=== PATIENT | female | born 1980 | race Two or more races ===

== ENCOUNTER → 2024-06-17 | Outpatient (CLI) | payer OTHER, SELFPAY ==
--- NOTE | 2024-06-17 09:45 | XR_ITS ---
Examination: Diagnostic digital mammography, unilateral, left Computer aided detection 3-D breast Tomosynthesis, unilateral Date and time of exam: June 17, 2024 0943 hours INDICATIONS: Mammogram September 09, 2023 10 mm circumscribed nodule upper left breast MLO view Technique: Nonmagnified MLO, CC views of the left breast have been obtained, reconstructed from 3-D Tomosynthesis images. R2 computer aided detection program utilized for evaluation of suspicious masses and/or abnormal calcifications. 3-D Tomosynthesis images obtained. Findings: Scattered areas of fibroglandular density. Benign calcifications No current suspicious nodule Impression: BI-RADS category 2: Benign findings Return to yearly follow-up mammography Recommend repeat left breast sonography at this time
== END | disposition home or self-care (01) ==
LOC: CDIM 09:33
PROVIDERS: Referring Provider Specialist; Visit Provider Specialist
DX: R92.322 Mammographic fibroglandular density, left breast (principal); R92.1 Mammographic calcification found on diagnostic imaging of breast
CPT/HCPCS: 77061; 77065; G0279

== ENCOUNTER 2024-06-28 11:49 | Emergency (ER) | payer OTHER, SELFPAY ==
[2024-06-28 11:50] VITALS: BMI 40.6
[2024-06-28 12:06] VITALS: BP 171/93; PULSE 101; RESP 16; TEMP 36.9; O2SAT 97
--- NOTE | 2024-06-28 12:29 | XR_ITS ---
Examination: CT brain head without contrast. 2-D sagittal coronal reconstructions Date and time of exam:June 28, 2024 1325 hrs. Indications: Headache dizziness beginning 4 days ago CTDI: vol (mGy):51.6 DLP: (mGycm):1045 Technique: Multiple CT axial sections of the brain have been obtained, 5 mm slice thickness. Contrast has not been administered. 2-D sagittal, coronal reconstructions have been obtained Low dose protocols were performed. One or more of the following dose reduction techniques were used; automated exposure control, adjustment of the mA and/or KV according to patient size, use of iterative reconstruction technique. Findings: No significant ventricular enlargement. Probable small calcification in the right basal ganglia image 24 Clinical correlation advised No mass effect or midline shift Basal cisterns are not remarkable. Fourth ventricle is midline. Cranial vault intact. Impression: Probable small calcification in the right basal ganglia, axial image 24 Suggest 24 hour follow-up CT brain scan as clinically warranted
--- NOTE | 2024-06-28 12:30 | PD.EDRME ---
Rapid Medical Screening Exam RME Arrival date/time: 06/28/24 11:49 43-year-old female presents emerged part today complains of headache patient for symptoms ongoing times Chief Complaint: Headache Time Seen by Provider: 06/28/24 11:53 Vital signs: Vital Signs Temperature 98.4 F 06/28/24 12:06 Pulse Rate 101 H 06/28/24 12:06 Respiratory Rate 16 06/28/24 12:06 Blood Pressure 171/93 H 06/28/24 12:06 Pulse Oximetry (%) 97 06/28/24 12:06 Oxygen Delivery Method Room Air 06/28/24 12:06
[2024-06-28 13:11] LABS: Basophils % (Auto) 0 % (0-2.5); Eosinophils % (Auto) 0 % (0-10); Hematocrit 27.7 % (36.0-46.0); Immature Granulocytes % (Auto) 0 % (0-0); Immature Granulocytes Auto 0.04 Thou/mm3 (0.00-0.00); Lymphocytes # (Auto) 1.6 Thou/mm3 (1.0-4.8); Lymphocytes % (Auto) 16 % (10-50); Mean Corpuscular HGB Conc 28.2 g/dl (31.0-37.0); Mean Corpuscular Hemoglobin 17.6 pg (25.0-35.0); Mean Corpuscular Volume 62 fL (80-100); Monocytes # (Auto) 0.4 Thou/mm3 (0.0-0.8); Monocytes % (Auto) 4 % (0-12); Neutrophils # (Auto) 8.4 Thou/mm3 (1.8-7.7); Neutrophils % (Auto) 80 % (37-80); Nucleated Red Blood Cell % 0 /100 WBC (0); Platelet Count 470 Thou/mm3 (140-440); RDW Standard Deviation 39.5 fL (36.4-46.3); Red Blood Count 4.44 Miln/mm3 (4.00-5.20); White Blood Count 10.5 Thou/mm3 (3.6-11.0)
[2024-06-28 13:12] LABS: Hemoglobin 7.8 g/dL (12.0-16.0)
[2024-06-28 13:32] LABS: HCG,Qualitative Serum Negative
[2024-06-28 13:43] LABS: Alanine Aminotransferase 12 U/L (10-49); Albumin, Serum 4.4 gm/dL (3.5-5.0); Albumin/Globulin Ratio 1.5 (1.2-2.2); Alkaline Phosphatase 53 U/L (46-116); Anion Gap 9 (7-16); Aspartate Amino Transferase < 10 U/L (0-34); BUN/Creatinine Ratio 16 Ratio (12-20); Bilirubin,Total 0.4 mg/dL (0.3-1.2); Blood Urea Nitrogen 13 mg/dL (9-23); Carbon Dioxide 25.2 mMol/L (20.0-31.0); Chloride 106 mMol/L (98-107); Creatinine (Component) 0.8 mg/dL (0.6-1.3); Estimated Creatinine Clearance 94.1 mL/min (>60); Glucose 103 mg/dL (74-106); Osmolality,Calculated 279 (275-295); Potassium 3.7 mMol/L (3.4-5.1); Sodium 140 mMol/L (136-145); Total Protein 7.4 gm/dL (5.7-8.2); eGFR > 60 See Note
[2024-06-28 15:20] LABS: Path Review Blood Smear Sent to Pathologist
[2024-06-28 18:49] VITALS: BP 150/89; PULSE 89; RESP 16; TEMP 37.1; O2SAT 100
--- NOTE | 2024-06-28 19:06 | PD.EDHA ---
ED Headache RME/HPI General Chief Complaint: Headache Stated Complaint: HEADACHE SINCE THRUSDAY Time Seen by Provider: 06/28/24 11:53 Source: patient Arrival date/time: 06/28/24 11:49 Mode of arrival: ambulatory Limitations: no limitations RME / HPI RME / HPI Narrative: 06/28/24 11:49 43-year-old female presents emerged part today complains of headache patient for symptoms ongoing times . Dr. Grant?s Main ED Evaluation: The patient is a 43-year-old female presenting to the emergency department with a chief complaint of persistent pulsating headache and associated dizziness. The headache began on and has been present for the past four days. She describes the pain as diffuse, dull, and moderately severe, without aura, photophobia, or visual disturbances. The headache is minimally responsive to [id number] analgesics. Earlier today, she took Excedrin Migraine, which provided partial but temporary relief. Yesterday, she developed dizziness. She denies recent head trauma. The dizziness has persisted, leading her to seek emergency care. Additionally, the patient reports excessive sweating of the hands and feet, which has been occurring consistently for the past 1 to 2 weeks. The patient notes that her headache is exacerbated by physical activity and movement. Additionally, she reports that feelings of anxiety also intensify the headache. Her medication history includes a recent course of Macrobid for a urinary tract infection and Diflucan. She has not sought medical evaluation for her current symptoms but reports having a primary care physician. The patient has a history of menorrhagia and iron-deficiency anemia. She has been prescribed iron supplementation in the past but reports poor compliance due to adverse effects, including nausea, gastrointestinal upset, and an aversion to its metallic taste. She denies fever, nausea, vomiting, recent illness, or other systemic symptoms. The patient reports experiencing a similar episode in 2019, during the COVID-19 pandemic. At that time, she underwent a CT scan of the head, which was reportedly negative for any acute findings. Following this evaluation, she consulted with her primary care physician, who attributed her symptoms to stress and prescribed Valium. Related Data Home Medications ?Medication ?Instructions ?Recorded ?Confirmed lisinopril 20 mg tablet 20 mg PO QDAY 08/02/23 08/02/23 Previous Rx's ?Medication ?Instructions ?Recorded dicyclomine 20 mg tablet 20 mg PO .q6hprn PRN abdominal 08/03/23 pain #30 tabs ibuprofen 600 mg tablet 600 mg PO Q6H PRN pain #30 tabs 08/03/23 ondansetron 4 mg disintegrating 4 mg PO Q6H PRN nausea and 08/03/23 tablet vomiting #10 tabs ibuprofen 800 mg tablet 800 mg PO TID PRN pain #30 tabs 11/22/23 Allergies Allergy/AdvReac Type Severity Reaction Status Date / Time No Known Allergies Allergy Verified 06/28/24 11:50 Review of Systems Review of Systems Systems Reviewed: All systems reviewed, normal except as documented Past Medical History Past Medical History NEUROLOGIC: Negative Neurological Disorders or Seizures CARDIAC: Positive Heart Murmur, Hypercholesterolemia and Hypertension; Negative Cardiac Disorders or Congestive Heart Failure RESPIRATORY: Negative Chronic Obstructive Pulmonary Disease (COPD) or Asthma GASTROINTESTINAL: Positive Gastrointestinal Disorders, Gall Bladder Disease, Ulcer, Hiatal Hernia and Obesity; Negative Hepatitis GENITOURINARY: Negative Genitourinary Disorders or Renal Disease REPRODUCTIVE: Positive Previous Pregnancies MUSCULOSKELETAL: Negative Musculoskeletal Disorders ENDOCRINE: Negative Endocrine Disorders, Diabetes Mellitus Type 1 or Diabetes Mellitus Type 2 HEMATOLOGIC: Positive Blood Disorders and Anemia; Negative Sickle Cell Disease OTHER HISTORY: Positive Chicken Pox; Negative Autoimmune Disease, Shingles, Blood Transfusions, Blood Transfusion Reaction, Anesthesia Reactions or Cancer Family History FAMILY HISTORY: Negative Family Psychiatric Problems, Family Respiratory Disorders, Family Cardiac Disorders, Family Gastrointestinal Problems, Family Cancer, Family Surgery or Family Anesthesia Reaction Surgical History SURGICAL: Positive Tubal Ligation and Section (x4) Social History SMOKING STATUS: Never smoker SUBSTANCE USE: does not use ED Exam General Limitations: Present no limitations General appearance: Present alert and in no apparent distress Head Head exam: Present atraumatic Eye Eye exam: Present normal appearance, PERRL and EOMI ENT ENT exam: Present normal exam, normal oropharynx and mucous membranes moist Neck Neck exam: Present normal inspection, full ROM and trachea midline Chest Chest inspection: Present normal inspection and symmetric chest wall rise Respiratory Respiratory exam: Present normal lung sounds bilaterally Cardiovascular Cardiovascular exam: Present regular rate, normal rhythm and normal heart sounds Abdominal Exam Abdominal exam: Present soft and normal bowel sounds Extremities Exam Extremities exam: Present normal inspection and full ROM Back Exam Back exam: Present normal inspection and full ROM Neurological Exam Neurological exam: Present alert, oriented X3 and CN II-XII intact Psychiatric Psychiatric exam: Present normal affect and normal mood Skin Skin exam: Present warm, dry, intact and normal color Course Quality Measures none Orders Category Date Time Status CT Screening NOW Care 06/28/24 19:13 Completed IV [Insert IV] STAT Care 06/28/24 19:[address] angio carotid w head w Stat Exams 06/28/24 19:[address] head/brain wo con Stat Exams 06/28/24 12:29 Completed CBC Stat Lab 06/28/24 12:56 Completed CMP [Comprehensive Metabolic Panel] Stat Lab 06/28/24 12:56 Completed HCG,Qualitative Serum Stat Lab 06/28/24 12:56 Completed Path Review Blood Smear Stat Lab 06/28/24 12:56 Completed Sodium Chloride 0.9% 1000 ml [Ns] 1,000 ml Med 06/28/24 19:14 Discontinued IV 999 mls/hr Vital Signs Vital signs: Vital Signs Temperature 98.4 F 06/28/24 12:06 Pulse Rate 101 H 06/28/24 12:06 Respiratory Rate 16 06/28/24 12:06 Blood Pressure 171/93 H 06/28/24 12:06 Pulse Oximetry (%) 97 06/28/24 12:06 Oxygen Delivery Method Room Air 06/28/24 12:06 Headache MDM Narrative MDM Narrative:: Scribe Attestation: IТатьяна, am scribing for and in the presence of Dr. Grant. Provider Notation: Although this document has been carefully reviewed, there may still be some phonetic and other typographical errors. These errors are purely grammatical due to imperfections in the software program and should not be construed in any way to compromise the substance of the patient's medical care during this visit. Patient data External records reviewed:: [facility] previous records Clinical information provided by:: patient Social determinants that could affect healthcare access:: none Patient has the following chronic illnesses:: see PMH How is presenting disease/condition affected by chronic disease/condition?: uneffected by Evaluation data The following diagnostics were reviewed and interpreted by me:: lab results and radiology exam(s) Lab and/or radiology exams considered but not ordered:: None Interpretation Summary: I personally reviewed the radiology data and agree with the radiologist's interpretation. Examination: CT brain head without contrast. Date and time of exam:June 28, 2024 1325 hrs. Indications: Headache dizziness beginning 4 days ago Findings: No significant ventricular enlargement. Probable small calcification in the right basal ganglia image 24 Clinical correlation advised No mass effect or midline shift Basal cisterns are not remarkable. Fourth ventricle is midline. Cranial vault intact. Impression: Probable small calcification in the right basal ganglia, axial image 24 Suggest 24 hour follow-up CT brain scan as clinically warranted Dictated By: Rober Benjamin MD Examination: CTA carotids with intravenous contrast, CTA brain, head with intravenous contrast. Exam date and time: June 28, 2024 2003 hours INDICATIONS: Stroke alert, onset headaches beginning 4 days ago Findings: No significant common carotid carotid bifurcation or internal carotid artery stenoses Contrast bolus timing is reduced intracranial, no gross cerebral large vessel artery occlusions or thrombus IMPRESSION: Limited study No significant neck arterial stenoses No large vessel arterial occlusions demonstrated Dictated By: Rober Benjamin MD Medications / Prescriptions Medications or Prescriptions considered but not ordered:: None Medication administrations:: Medication Administration History Discontinued Medications Sodium Chloride (Ns) 1,000 mls @ 999 mls/hr IV .Q1H1M ONE Stop: 06/28/24 20:14 Last Infusion: 06/28/24 20:46 Dose: Infused Documented By: Admin: 06/28/24 19:45 Dose: 999 mls/hr Documented By: EF As above, if any Consultations Consultation(s) initiated? (list below): No Diagnosis Differential diagnosis headache: other (Artifact, Bleed, Other intracranial disease, Aneursym, Atypical trauma, Undiagnosed migraine) Most likely diagnosis given after review of the tests above:: See clinical impression Admission Indicated Admission indicated?: not indicated Admission Request Was there a request for admission?: No Disposition Plan Disposition Plan: Discharge Discharge Attestation Discharge Attestation: The patient and all family members were given an opportunity to ask questions and understood the discharge instructions. Discharge instructions specifically effects, indications for sooner follow up or return to the emergency department, and the expected course of current diagnosis. Patient condition: Stable Discharge Plan Plan Patient Disposition: HOME (Self Care) Patient condition on transfer: Stable Prescriptions/Referrals Prescriptions/Med Rec: No Action lisinopril 20 mg Tablet 20 mg PO QDAY ibuprofen 600 mg tablet 600 mg PO Q6H PRN (Reason: pain) Qty: 30 0RF dicyclomine 20 mg tablet 20 mg PO .q6hprn PRN (Reason: abdominal pain) Qty: 30 0RF ondansetron 4 mg tablet,disintegrating 4 mg PO Q6H PRN (Reason: nausea and vomiting) Qty: 10 0RF ibuprofen 800 mg tablet 800 mg PO TID PRN (Reason: pain) Qty: 30 0RF Referrals: No Primary/Family,Physician [Primary Care Provider] - In 1 week Problem List Clinical Impression: Headache Patient/Caregiver Discharge Instructions Education Materials: Self-Care for Headaches Additional Instructions: Please return tomorrow at around 11 AM, to get a repeat CAT scan to see if there is a change in the calcification on your initial CT. Return sooner if you are having any worsening headache, any weakness or numbness, change in vision, or any other concerns. You can take Tylenol 650 mg 3 times a day as needed for pain for the next 48 hours. Stay hydrated with Pedialyte and Gatorade. You will need to follow-up with your primary care in the next 1 week for general follow-up. Print Language: Turkmen Stand Alone Forms: Skyla Award Info., Patient Portal Info Letter
--- NOTE | 2024-06-28 19:13 | XR_ITS ---
Examination: CTA carotids with intravenous contrast CTA brain, head with intravenous contrast. 2-D sagittal, coronal reconstructions. 3-D reconstructions. Exam date and time: June 28, 20242002 hours INDICATIONS: Stroke alert, onset headaches beginning 4 days ago CTDI: vol (mGy) 46.78 DLP: (mGycm) 500 Technique: Multiple CTA axial brain, head carotid images post intravenous contrast injection 75 cc, [id number]. 2-D sagittal, coronal reconstructions. 3-D reconstructions, 3-D post processing including vascular maximum intensity projection images. Low dose protocols were performed. One or more of the following dose reduction techniques were used; automated exposure control, adjustment of the mA and/or KV according to patient size, use of iterative reconstruction technique. Findings: No significant common carotid carotid bifurcation or internal carotid artery stenoses Contrast bolus timing is reduced intracranial, no gross cerebral large vessel artery occlusions or thrombus IMPRESSION: Limited study No significant neck arterial stenoses No large vessel arterial occlusions demonstrated
[2024-06-28] MEDS: SODIUM CHLORIDE 0.9% 1000 ML 1,000 ML 999 ML IV (19:45)
[2024-06-28 23:25] VITALS: BP 142/82; PULSE 88; RESP 16; TEMP 36.8; O2SAT 100
== END 2024-06-28 23:31 | disposition home or self-care (01) ==
PROVIDERS: Nurse Practitioner Primary Care; Emergency Provider Emergency Medicine
DX: R51.9 Headache, unspecified (principal); R42 Dizziness and giddiness
CPT/HCPCS: 36415; 70450; 70496; 70498; 80053; 84703; 85025; 96360; 99285; A4649; J7030; Q9967

== ENCOUNTER 2024-06-29 11:04 | Emergency (ER) | payer OTHER, SELFPAY ==
[2024-06-29 11:06] VITALS: BP 146/86; PULSE 99; RESP 18; TEMP 37.2; O2SAT 100; BMI 40.6
[2024-06-29 11:24] VITALS: BMI 38.5
--- NOTE | 2024-06-29 11:27 | XR_ITS ---
Examination: CT brain head without contrast. 2-D sagittal coronal reconstructions Date and time of exam:June 29, 2024 1045 hours Comparison June 28, 2024 INDICATIONS: Onset headaches dizziness this week CTDI: vol (mGy):51.1 DLP: (mGycm):887 Technique: Multiple CT axial sections of the brain have been obtained, 5 mm slice thickness. Contrast has not been administered. 2-D sagittal, coronal reconstructions have been obtained Low dose protocols were performed. One or more of the following dose reduction techniques were used; automated exposure control, adjustment of the mA and/or KV according to patient size, use of iterative reconstruction technique. Findings: No significant ventricular enlargement. Stable small area of calcification in the right basal ganglia Intra-axial or extra-axial hemorrhage density is not seen. No mass effect or midline shift Basal cisterns are not remarkable. Fourth ventricle is midline. Cranial vault intact. Impression: No interval acute hemorrhage, mass effect or midline shift
--- NOTE | 2024-06-29 13:01 | EDNOTE_ITS ---
ED Headache RME/HPI General Chief Complaint: Headache Stated Complaint: HEADACHE AND SENT TO GET REPEATE HEAD CT. Time Seen by Provider: 06/29/24 11:27 Arrival date/time: 06/29/24 11:04 43-year-old female presents emergency department today patient had CT scan yesterday was instructed to return today for repeat CT scan today Limitations: no limitations Related Data Home Medications ?Medication ?Instructions ?Recorded ?Confirmed lisinopril 20 mg tablet 20 mg PO QDAY 08/02/2308/01 Previous Rx's ?Medication ?Instructions ?Recorded dicyclomine 20 mg tablet 20 mg PO .q6hprn PRN abdomin al 08/03/23 pain #30 tabs ibuprofen 600 mg tablet 600 mg PO Q6H PRN pain #30 t abs 08/03/23 ondansetron 4 mg disintegrating 4 mg PO Q6H PRN nausea and 08/03/23 tablet vomiting #10 tabs ibuprofen 800 mg tablet 800 mg PO TID PRN pain #30 t abs 11/22/23 Allergies Allergy/AdvReac Type Severity Reaction Status Date / Time No Known Allergies Allergy Verified 06/28/24 11:50 Review of Systems Review of Systems Systems Reviewed: All systems reviewed, normal except as documented Constitutional Constitutional: Reports system reviewed and no additional complaints, except as documented, Denies fever(s) and Reports headache(s) Eyes Eyes: Reports system reviewed and no additional complaints, except as documented and Denies blurry vision ENT Ears, Nose, Mouth, and Throat: Reports system reviewed and no additional complaints, except as documented, Reports headache(s), Denies nasal congestion and Denies nasal discharge Cardiovascular Cardiovascular: Reports system reviewed and no additional complaints, except as documented, Denies chest pain and Denies dyspnea Respiratory Respiratory: Reports system reviewed and no additional complaints, except as documented, Denies chest congestion, Denies cough and Denies dyspnea Gastrointestinal Gastrointestinal: Reports system reviewed and no additional complaints, except as documented and Denies abdominal pain Integumentary/Breasts Skin/Breast: Reports system reviewed and no additional complaints, except as documented and Denies rash Neurologic Neurologic: Reports system reviewed and no additional complaints, except as documented, Reports as per HPI and Reports headache(s) Past Medical History Past Medical History NEUROLOGIC: Negative Neurological Disorders or Seizures CARDIAC: Positive Heart Murmur, Hypercholesterolemia and Hypertension; Negative Cardiac Disorders or Congestive Heart Failure RESPIRATORY: Negative Chronic Obstructive Pulmonary Disease (COPD) or Asthma GASTROINTESTINAL: Positive Gastrointestinal Disorders, Gall Bladder Disease, Ulcer, Hiatal Hernia and Obesity; Negative Hepatitis GENITOURINARY: Negative Genitourinary Disorders or Renal Disease REPRODUCTIVE: Positive Previous Pregnancies MUSCULOSKELETAL: Negative Musculoskeletal Disorders ENDOCRINE: Negative Endocrine Disorders, Diabetes Mellitus Type 1 or Diabetes Mellitus Type 2 HEMATOLOGIC: Positive Blood Disorders and Anemia; Negative Sickle Cell Disease OTHER HISTORY: Positive Chicken Pox; Negative Autoimmune Disease, Shingles, Blood Transfusions, Blood Transfusion Reaction, Anesthesia Reactions or Cancer Family History FAMILY HISTORY: Negative Family Psychiatric Problems, Family Respiratory Disorders, Family Cardiac Disorders, Family Gastrointestinal Problems, Family Cancer, Family Surgery or Family Anesthesia Reaction Surgical History SURGICAL: Positive Tubal Ligation and Section Social History SMOKING STATUS: Never smoker SUBSTANCE USE: does not use ED Exam General Limitations: Present no limitations General appearance: Present alert and in no apparent distress Head Head exam: Present atraumatic, normocephalic and normal inspection Eye Eye exam: Present normal appearance, PERRL and EOMI; Absent conjunctival injection ENT ENT exam: Present normal exam, normal oropharynx and mucous membranes moist Neck Neck exam: Present normal inspection, full ROM and trachea midline Chest Chest inspection: Present normal inspection and symmetric chest wall rise; Absent tenderness Respiratory Respiratory exam: Present normal lung sounds bilaterally; Absent respiratory distress or wheezes Cardiovascular Cardiovascular exam: Present regular rate, normal rhythm and normal heart sounds Abdominal Exam Abdominal exam: Present soft and normal bowel sounds; Absent distention, tenderness, guarding or rebound Extremities Exam Extremities exam: Present normal inspection and full ROM Back Exam Back exam: Present normal inspection and full ROM Neurological Exam Neurological exam: Present alert, oriented X3, CN II-XII intact, normal gait and reflexes normal; Absent motor sensory deficit Psychiatric Psychiatric exam: Present normal affect and normal mood Skin Skin exam: Present warm, dry, intact and normal color Course Quality Measures none Orders Category Date Time Status CT head/brain wo con Stat Exams 06/29/24 11:27 Completed Vital Signs Vital signs: Vital Signs Temperature 99.0 F 06/29/24 11:06 Pulse Rate 99 06/29/24 11:06 Respiratory Rate 18 06/29/24 11:06 Blood Pressure 146/86 H 06/29/24 11:06 Pulse Oximetry (%) 100 06/29/24 11:06 Oxygen Delivery Method Room Air 06/29/24 11:06 O2 saturation 100% room air within normal limits Headache MDM Narrative MDM Narrative:: 43-year-old female presents emergency department today patient had CT scan yesterday was instructed to return today for repeat CT scan today On exam patient well-appearing patient's not appear ill or toxic patient had CT scans completed because have a headache Imaging of the head reviewed from yesterday repeat CT scan done today As patient has no abnormal neurological findings patient will be discharged home Patient discharged home in no distress to follow-up with primary care doctor in the next 24 to 48 hours and for any worsening symptoms to return to the ER immediately Patient data External records reviewed:: [facility] previous records Clinical information provided by:: patient Social determinants that could affect healthcare access:: none Patient has the following chronic illnesses:: See history How is presenting disease/condition affected by chronic disease/condition?: uneffected by Evaluation data The following diagnostics were reviewed and interpreted by me:: radiology exam(s) Lab and/or radiology exams considered but not ordered:: Radiology obtain Interpretation Summary: Viewed by me Medications / Prescriptions Medications or Prescriptions considered but not ordered:: Gi Medication administrations:: Given i Consultations Consultation(s) initiated? (list below): No Diagnosis Differential diagnosis headache: migraine and tension headache Most likely diagnosis given after review of the tests above:: Headache Admission Indicated Admission indicated?: not indicated Admission Request Was there a request for admission?: No Disposition Plan Disposition Plan: Discharge Discharge Attestation Discharge Attestation: The patient and all family members were given an opportunity to ask questions and understood the discharge instructions. Discharge instructions specifically effects, indications for sooner follow up or return to the emergency department, and the expected course of current diagnosis. Patient condition: Stable Discharge Plan Plan Patient Disposition: HOME (Self Care) Disposition Comment: Stable Prescriptions/Referrals Prescriptions/Med Rec: No Action lisinopril 20 mg Tablet 20 mg PO QDAY ibuprofen 600 mg tablet 600 mg PO Q6H PRN (Reason: pain) Qty: 30 0RF dicyclomine 20 mg tablet 20 mg PO .q6hprn PRN (Reason: abdominal pain) Qty: 30 0RF ondansetron 4 mg tablet,disintegrating 4 mg PO Q6H PRN (Reason: nausea and vomiting) Qty: 10 0RF ibuprofen 800 mg tablet 800 mg PO TID PRN (Reason: pain) Qty: 30 0RF Referrals: PATRICIA MENSAH [Primary Care Provider] - 06/30/24 Problem List Clinical Impression: Headache Patient/Caregiver Discharge Instructions Education Materials: Self-Care for Headaches Additional Instructions: Please follow up with your primary care doctor in the next 24-48hrs for any worsening symptoms return here immediately Print Language: Faroese Stand Alone Forms: Skyla Award Info., Patient Portal Info Letter PA/NOVELTIES SALES REPRESENTATIVE Supervising Physician PA/NOVELTIES SALES REPRESENTATIVE Supervising Physician: Dr Mcmillan
== END 2024-06-29 13:38 | disposition home or self-care (01) ==
PROVIDERS: Emergency Provider Emergency Medicine; PCP Nurse Practitioner Family
DX: R51.9 Headache, unspecified (principal)
CPT/HCPCS: 70450; 99284

== ENCOUNTER → 2024-07-06 | Outpatient (CLI) | payer OTHER, SELFPAY ==
--- NOTE | 2024-07-06 12:32 | XR_ITS ---
Examination: PA lateral chest 2 views TECHNIQUE: Upright PA lateral chest 2 views Exam date and time: July 06, 2024 1351 hours INDICATIONS: Chest pain shortness of breath beginning 2 weeks ago FINDINGS: Normal heart size. Lungs are clear The osseous structures are intact IMPRESSION: No active disease
== END | disposition home or self-care (01) ==
LOC: COPL 07-08 15:41 → CDIM 07-29 06:28
PROVIDERS: PCP Nurse Practitioner Family; Referring Provider Nurse Practitioner Family; Visit Provider Nurse Practitioner Family
DX: R07.9 Chest pain, unspecified (principal)
CPT/HCPCS: 71046

== ENCOUNTER → 2024-07-10 | Outpatient (CLI) | payer OTHER, SELFPAY ==
[2024-07-10] VITALS (10 sets, daily range): BP systolic 123–137; BP diastolic 72–86; PULSE 71–99; RESP 16–17; TEMP 36.3–37.1; O2SAT 97–100; BMI 39.8
--- NOTE | 2024-07-10 12:30 | SUR.OPER ---
blood transfusion complete. lab ordered for 1 hour.
[2024-07-10] MEDS: FUROSEMIDE INJ 10 MG/ML VIAL 2 ML 20 MG IVP (13:32)
[2024-07-10 13:46] LABS: Basophils % (Auto) 0 % (0-2.5); Eosinophils % (Auto) 0 % (0-10); Hemoglobin 10.2 g/dL (12.0-16.0); Immature Granulocytes % (Auto) 1 % (0-0); Lymphocytes # (Auto) 2.1 Thou/mm3 (1.0-4.8); Lymphocytes % (Auto) 27 % (10-50); Mean Corpuscular Hemoglobin 20.4 pg (25.0-35.0); Mean Corpuscular Volume 68 fL (80-100); Monocytes # (Auto) 0.4 Thou/mm3 (0.0-0.8); Monocytes % (Auto) 5 % (0-12); Neutrophils # (Auto) 5.1 Thou/mm3 (1.8-7.7); Neutrophils % (Auto) 67 % (37-80); Nucleated Red Blood Cell % 0 /100 WBC (0); Platelet Count 347 Thou/mm3 (140-440); RDW Standard Deviation 54.6 fL (36.4-46.3); White Blood Count 7.7 Thou/mm3 (3.6-11.0)
== END | disposition home or self-care (01) ==
LOC: SFLEX 07:01
PROVIDERS: PCP Nurse Practitioner Family; Referring Provider Nurse Practitioner Family; Visit Provider Family Medicine
PROC: (CPT 36430; principal; 2024-07-10 06:00)
DX: D64.9 Anemia, unspecified (principal); R00.0 Tachycardia, unspecified; R53.82 Chronic fatigue, unspecified; R06.02 Shortness of breath
CPT/HCPCS: 36415; 36430; 85025; 86850; 86900; 86901; 86923; J1940; P9016

== ENCOUNTER 2024-07-23 13:16 | Outpatient (RCR) | payer OTHER, SELFPAY | END 2024-07-24 23:59 | disposition home or self-care (01) | LOC: SCTC 13:16 | PROVIDERS: PCP Nurse Practitioner Family; Referring Provider Nurse Practitioner Family; Visit Provider Nurse Practitioner Family | DX: Z76.89 Persons encountering health services in other specified circumstances (principal); Z15.01 Genetic susceptibility to malignant neoplasm of breast; Z15.09 Genetic susceptibility to other malignant neoplasm; Z80.3 Family history of malignant neoplasm of breast; Z80.0 Family history of malignant neoplasm of digestive organs; N92.0 Excessive and frequent menstruation with regular cycle | CPT/HCPCS: 99212; G0463 ==

== ENCOUNTER → 2024-07-23 | Outpatient (CLI) | payer OTHER, SELFPAY ==
[2024-07-23 12:35] LABS: Basophils % (Auto) 0 % (0-2.5); Eosinophils % (Auto) 0 % (0-10); Immature Granulocytes % (Auto) 0 % (0-0); Immature Granulocytes Auto 0.02 Thou/mm3 (0.00-0.00); Immature Reticulocyte Fraction 18.3 % (3.0-15.9); Lymphocytes # (Auto) 2.4 Thou/mm3 (1.0-4.8); Lymphocytes % (Auto) 33 % (10-50); Mean Corpuscular HGB Conc 29.4 g/dl (31.0-37.0); Mean Corpuscular Volume 71 fL (80-100); Monocytes # (Auto) 0.5 Thou/mm3 (0.0-0.8); Monocytes % (Auto) 6 % (0-12); Neutrophils # (Auto) 4.5 Thou/mm3 (1.8-7.7); Neutrophils % (Auto) 61 % (37-80); Nucleated Red Blood Cell % 0 /100 WBC (0); Platelet Count 318 Thou/mm3 (140-440); RDW Standard Deviation 61.6 fL (36.4-46.3); Red Blood Count 4.76 Miln/mm3 (4.00-5.20); Reticulocyte % (Auto) 0.9 % (0.5-1.5); Reticulocyte Absolute Auto 41.4 Biln/L (25.0-75.0); Reticulocyte Hgb Content 26.5 pg (28.0-35.0); White Blood Count 7.4 Thou/mm3 (3.6-11.0)
[2024-07-23 12:48] LABS: Alanine Aminotransferase 14 U/L (10-49); Albumin, Serum 4.2 gm/dL (3.5-5.0); Alkaline Phosphatase 55 U/L (46-116); Anion Gap 8 (7-16); Aspartate Amino Transferase 12 U/L (0-34); BUN/Creatinine Ratio 13 Ratio (12-20); Bilirubin,Total 0.5 mg/dL (0.3-1.2); Blood Urea Nitrogen 8 mg/dL (9-23); Calcium 9.3 mg/dL (8.3-10.6); Calcium (Corrected) 9.3 mg/dL (8.5-10.1); Carbon Dioxide 26.9 mMol/L (20.0-31.0); Chloride 105 mMol/L (98-107); Creatinine (Component) 0.6 mg/dL (0.6-1.3); Globulin 2.1 gm/dL (2.3-3.5); Glucose 87 mg/dL (74-106); Osmolality,Calculated 276 (275-295); Potassium 4.2 mMol/L (3.4-5.1); Sodium 140 mMol/L (136-145); Total Protein 6.3 gm/dL (5.7-8.2); eGFR > 60 See Note
[2024-07-23 12:49] LABS: Folate 16.78 ng/mL (>5.38); Vitamin B12 369 pg/mL (211-911)
[2024-07-23 13:04] LABS: Ferritin 4 ng/mL (7.3-270.7); Iron 47 mcg/dL (50-170); Percent Iron Saturation 11 % (20-55); Total Iron Binding Capacity 392 mcg/dL (250-425); Unsaturated Iron Binding 345 (225-295)
== END | disposition home or self-care (01) ==
LOC: COPL 11:15 → SCTO 11:19
PROVIDERS: PCP Family Medicine; Referring Provider Internal Medicine Hematology & Oncology; Visit Provider Internal Medicine Hematology & Oncology
DX: Z80.9 Family history of malignant neoplasm, unspecified (principal)
CPT/HCPCS: 36415; 80053; 82607; 82728; 82746; 83540; 83550; 85025; 85046

== ENCOUNTER → 2024-07-29 | Outpatient (CLI) | payer OTHER, SELFPAY ==
[2024-07-29 10:48] LABS: Glucose Estimated Average 105 mg/dL (80-131); Hemoglobin A1C 5.3 % Hgb (4.8-6.0)
[2024-07-29 11:02] LABS: Thyroid Stimulating Hormone 1.22 uIU/mL (0.55-4.78)
[2024-07-29 13:40] LABS: Cocci Serology, IgM Positive (Negative)
[2024-07-29 13:41] LABS: Cocid Sro, CF/ID (UCD) NO CHG* See Sep Rpt
== END | disposition home or self-care (01) ==
LOC: COPL 09:29
PROVIDERS: PCP Nurse Practitioner Family; Referring Provider Nurse Practitioner Family; Visit Provider Nurse Practitioner Family
DX: E03.9 Hypothyroidism, unspecified (principal); B38.89 Other forms of coccidioidomycosis; E11.9 Type 2 diabetes mellitus without complications
CPT/HCPCS: 36415; 83036; 84443; 86635

== ENCOUNTER 2024-09-22 23:26 | Emergency (ER) | payer OTHER, SELFPAY ==
[2024-09-22 23:27] VITALS: BMI 40.6
--- NOTE | 2024-09-22 23:29 | EKG_ITS ---
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
[2024-09-22 23:39] VITALS: BP 163/95; PULSE 90; RESP 18; TEMP 36.5; O2SAT 99
--- NOTE | 2024-09-23 00:21 | XR_ITS ---
Examination: Two-view chest single view TECHNIQUE: Upright PA chest single view Standing time: September 23, 2024 0137 hours Comparison July 06, 2024 INDICATIONS: Onset right-sided chest pain beginning 4 days ago. FINDINGS: Normal heart size. Lungs are clear. Osseous structures are intact IMPRESSION: No active disease
--- NOTE | 2024-09-23 00:22 | PD.EDRME ---
Rapid Medical Screening Exam RME Arrival date/time: 09/22/24 23:26 Chief Complaint: Chest Pain Time Seen by Provider: 09/22/24 23:29 Vital signs: Vital Signs Temperature 97.7 F 09/22/24 23:39 Pulse Rate 90 09/22/24 23:39 Respiratory Rate 18 09/22/24 23:39 Blood Pressure 163/95 H 09/22/24 23:39 Pulse Oximetry (%) 99 09/22/24 23:39 Oxygen Delivery Method Room Air 09/22/24 23:39 E Narrative: Right sided cp worse with deep inspirations intermittent x4 days. Also reports swellling to R upper arm.
[2024-09-23 00:48] LABS: Basophils % (Auto) 0 % (0-2.5); Eosinophils # (Auto) 0.1 Thou/mm3 (0.0-0.5); Eosinophils % (Auto) 1 % (0-10); Hematocrit 31.7 % (36.0-46.0); Hemoglobin 9.8 g/dL (12.0-16.0); Immature Granulocytes % (Auto) 0 % (0-0); Immature Granulocytes Auto 0.03 Thou/mm3 (0.00-0.00); Lymphocytes # (Auto) 2.7 Thou/mm3 (1.0-4.8); Lymphocytes % (Auto) 29 % (10-50); Mean Corpuscular HGB Conc 30.9 g/dl (31.0-37.0); Mean Corpuscular Hemoglobin 22.2 pg (25.0-35.0); Mean Corpuscular Volume 72 fL (80-100); Monocytes # (Auto) 0.7 Thou/mm3 (0.0-0.8); Monocytes % (Auto) 8 % (0-12); Neutrophils # (Auto) 5.6 Thou/mm3 (1.8-7.7); Neutrophils % (Auto) 62 % (37-80); Nucleated Red Blood Cell % 0 /100 WBC (0); Platelet Count 332 Thou/mm3 (140-440); RDW Standard Deviation 47.2 fL (36.4-46.3); Red Blood Count 4.42 Miln/mm3 (4.00-5.20); White Blood Count 9.2 Thou/mm3 (3.6-11.0)
[2024-09-23 01:01] LABS: Alanine Aminotransferase 12 U/L (10-49); Albumin, Serum 4.3 gm/dL (3.5-5.0); Albumin/Globulin Ratio 1.7 (1.2-2.2); Alkaline Phosphatase 51 U/L (46-116); Anion Gap 7 (7-16); Aspartate Amino Transferase 12 U/L (0-34); BUN/Creatinine Ratio 17 Ratio (12-20); Bilirubin,Total 0.3 mg/dL (0.3-1.2); Blood Urea Nitrogen 10 mg/dL (9-23); Calcium 8.8 mg/dL (8.3-10.6); Calcium (Corrected) 8.8 mg/dL (8.5-10.1); Carbon Dioxide 22.8 mMol/L (20.0-31.0); Chloride 112 mMol/L (98-107); Creatinine (Component) 0.6 mg/dL (0.6-1.3); Estimated Creatinine Clearance 124.1 mL/min (>60); Globulin 2.5 gm/dL (2.3-3.5); Glucose 100 mg/dL (74-106); Osmolality,Calculated 282 (275-295); Sodium 142 mMol/L (136-145); Total Protein 6.8 gm/dL (5.7-8.2); Troponin I < 0.002 ng/mL (0.0-0.045); eGFR > 60 See Note
[2024-09-23 01:03] LABS: D-Dimer 353 ng/mL (<600)
[2024-09-23 01:14] LABS: HCG Qualitative,Urine Negative
[2024-09-23 01:18] LABS: B-Type Natriuretic Peptide < 20 pg/mL (0-100)
--- NOTE | 2024-09-23 01:48 | XR_ITS ---
Examination: Duplex scan of the upper extremity, unilateral right Date and time of exam: September 23, 2024 1409 hours INDICATION: Intermittent right arm swelling and pain beginning 6 days ago Technique: Duplex scan of the extremity veins using B-mode/grayscale imaging and Doppler spectral analysis and color flow Attention is directed to internal echogenicity, compression and augmentation involving these veins, color flow assessment, spectral analysis Findings: Major deep venous structures in the extremity demonstrate normal course and caliber. There is no evidence of deep vein thrombosis. Normal color flow and spectral analysis Impression: Negative for DVT..
[2024-09-23 03:03] VITALS: BP 138/92; PULSE 75; RESP 18; TEMP 36.9; O2SAT 100
--- NOTE | 2024-09-23 03:43 | PRELIM_ITS ---
Right upper extremity venous Doppler ultrasound. September 23, 2024 at 0209 hours Clinical history: Right upper arm swelling. Technique: Duplex scan of the right arm performed utilizing, 2D grayscale imaging, Doppler spectral analysis and color flow Doppler with compression. Comparison: No prior study is available for comparison. Findings: Right internal jugular, subclavian, axillary, cephalic, brachial, basilic, radial and ulnar veins are patent with normal waveforms. Impression: No right upper extremity venous thrombosis. Report Electronically Signed By: Efrem Miranda 09/23/2024 3:42:49 AM [EST]
[2024-09-23 05:10] LABS: Troponin I < 0.002 ng/mL (0.0-0.045)
[2024-09-23 06:05] VITALS: BP 119/63; PULSE 87; RESP 14; TEMP 36.9; O2SAT 99
[2024-09-23 07:01] VITALS: BP 139/85; PULSE 74; RESP 12; TEMP 36.8; O2SAT 99
--- NOTE | 2024-09-23 07:11 | PD.EDCHEST ---
ED Chest Pain RME/HPI General Chief Complaint: Chest Pain Stated Complaint: CHEST PAIN / SOB Time Seen by Provider: 09/22/24 23:29 Arrival date/time: 09/22/24 23:26 RME / HPI RME / HPI narrative: Right sided cp worse with deep inspirations intermittent x4 days. Also reports swellling to R upper arm. DR. CUEVAS MAIN ED EVALUATION: 44 year old female with history of hypertension presents to the ED for evaluation of pleuritic right sided chest pain beginning 8 days ago. Described feeling she is not able to take a deep breath due to pain and located only on the right side without any radiation. 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 States she had the pleuritic pain prior to delivery and feels it is unrelated. Patient mentioned she consulted with her PCP yesterday who prescribed a muscle relaxer and NSAID. Patient denies fevers, chills, sweats, cough, phlegm production. Mentioned she has had similar pain before and had consulted with PCP. States at that time she had a CXR that was negative however H/H 7.2 and received a blood transfusion. Related Data Home Medications ?Medication ?Instructions ?Recorded ?Confirmed lisinopril 20 mg tablet 20 mg PO QDAY 08/02/23 07/10/24 amlodipine 2.5 mg tablet 2.5 mg PO QDAY 07/10/24 07/10/24 atorvastatin 10 mg tablet 10 mg PO QDAY 07/10/24 07/10/24 Previous Rx's ?Medication ?Instructions ?Recorded ibuprofen 600 mg tablet 600 mg PO Q6H PRN pain #30 tabs 08/03/23 ibuprofen 800 mg tablet 800 mg PO TID PRN pain #30 tabs 11/22/23 Allergies Allergy/AdvReac Type Severity Reaction Status Date / Time No Known Allergies Allergy Verified 07/10/24 06:41 Review of Systems Review of Systems Narrative Review of Systems: Constitutional: DENIES; Fevers Eyes: DENIES; Loss of vision Head/Ear/Nose: DENIES; Loss of hearing Throat: DENIES; Dysphagia Cardiovascular: SEE HPI +pleuritic chest pain. DENIES;dyspnea or syncope Respiratory: DENIES; Shortness of breath Gastrointestinal: DENIES; Rectal bleeding or melena. Genitourinary: DENIES; Dysuria (painful or difficult urination) Musculoskeletal: SEE HPI +right arm pain Skin: DENIES; Rash Neurological: DENIES; Loss of function or movement Psychiatric: DENIES; recent major life stressor, emotional problem, illicit drug use or abuse Allergic/Immunologic: DENIES; Urticaria (hives) Past Medical History Past Medical History CARDIAC: Positive Heart Murmur, Hypercholesterolemia and Hypertension GASTROINTESTINAL: Positive Gastrointestinal Disorders, Gall Bladder Disease, Ulcer, Hiatal Hernia and Obesity REPRODUCTIVE: Positive Previous Pregnancies HEMATOLOGIC: Positive Blood Disorders and Anemia OTHER HISTORY: Positive Chicken Pox Family History FAMILY HISTORY: Negative Family Psychiatric Problems, Family Respiratory Disorders, Family Cardiac Disorders, Family Gastrointestinal Problems, Family Cancer, Family Surgery or Family Anesthesia Reaction Surgical History SURGICAL: Positive Tubal Ligation and Section Social History SMOKING STATUS: Never smoker SUBSTANCE USE: does not use ED Exam Narrative Physical exam: Physical Exam: General: The vital signs were reviewed. The patient is non-toxic, in no apparent distress and appears healthy with a patent airway, no respiratory distress and has no apparent circulatory problems. Head & Scalp: Normocephalic, atraumatic. Face: Appears normal and is without lesions, deformity. Ears: Left external pinna appears normal. Right external pinna appears normal. Eyes: The sclera is anicteric. No obvious photophobia. The Left and Right Orbit/Lid/Conjunctiva appears normal without swelling, discoloration or injection. Nose: The nose is without deformity, discharge or tenderness; Throat: Appears normal. The mucous membranes are pink and moist without exudates, redness or mass seen. The tongue appears normal. Neck: The neck is supple and no apparent mass or adenopathy. Chest: The chest wall has some mild tenderness on the right with no ecchymosis seen. There is no breast tenderness per the patient. Otherwise the remaining chest is normal in size and symmetry and has no chest wall tenderness or crepitus. Patient is able to take deep breaths with good breath sounds equally bilaterally. There is no splinting the patient displays normal ventilator effort without retractions, accessory muscle use and has adequate air movement bilaterally with no wheezes and no rales. Cardiovascular: Regular rate and rhythm; No murmurs, rubs, or gallops; Gastrointestinal: The abdomen appears normal. No obvious hernias or mass. The abdomen is soft and benign, non-distended, with no pain, no guarding and no rebound tenderness. Bowel sounds are present and normal sounding. No CVA tenderness. Genitourinary: Back/Spine: Normal Spektor nontender Extremities/Musculoskeletal/lymphatic: The bilateral upper and lower extremities are warm. There is no evidence of arterial insufficiency. There is no evidence of venous insufficiency/edema. The patient spontaneously moves bilateral upper and lower extremities with no pain and no limitation of movement. There is no apparent, injury or trauma. Skin: The skin is warm, dry and intact. No rashes. No petechia. No purpura. No abnormal bruising. The color is appropriate with no cyanosis. Mental status/Psychiatric: Mental status is appropriate for age. The patient has no apparent delusions, visual hallucinations, no apparent audible hallucinations. The patient has no apparent suicidal thoughts/ideation and no apparent homicidal thoughts/ideation. Neurological: The patient is awake, alert, interactive, cordial, cooperative and is oriented to name and situation. The patient follows commands and answers historical question with no impairment. There is no visual disturbance apparent. The pupils are equal and reactive bilaterally with normal eye movements and no diplopia The bilateral upper and lower extremities have normal strength, normal range of motion and normal functioning. The gait, station and balance appear to be baseline with no acute change Course Course Course Narrative: chest xray ordered to help determine etiology of chest pain. Quality Measures none Orders Category Date Time Status EKG (ED ONLY) *Do not use* NOW Care 09/22/24 23:29 Completed CXR [XR chest 1V] Stat Exams 09/23/24 00:21 Completed CXR [XR chest 1V] Stat Exams 09/23/24 07:23 Completed EKG (ED Only) Stat Exams 09/22/24 23:29 Draft US venous doppler UE RT Stat Exams 09/23/24 01:48 Completed BNP [B-Type Natriuretic Peptide] Stat Lab 09/23/24 00:33 Completed CBC Stat Lab 09/23/24 00:33 Completed CMP [Comprehensive Metabolic Panel] Stat Lab 09/23/24 00:33 Completed D-Dimer Stat Lab 09/23/24 00:33 Completed HCG Qualitative,Urine Stat Lab 09/23/24 00:33 Completed Troponin I Stat Lab 09/23/24 00:33 Completed Troponin I Stat Lab 09/23/24 04:35 Completed Vital Signs Vital signs: Vital Signs Temperature 97.7 F 09/22/24 23:39 Pulse Rate 90 09/22/24 23:39 Respiratory Rate 18 09/22/24 23:39 Blood Pressure 163/95 H 09/22/24 23:39 Pulse Oximetry (%) 99 09/22/24 23:39 Oxygen Delivery Method Room Air 09/22/24 23:39 Pulse ox is 99% on room air which is adequate. Chest Pain MDM Narrative MDM Narrative:: Alma Hogue am scribing for and in the presence of Dr. Cuevas. Patient presents with right pleuritic chest pain that is worse with breathing and palpation she was worried about a pulmonary embolus as she works as a nurse in [employer]. D-dimer came back negative. She does have a palpable component to the chest wall tenderness on the right. Her medical workup was negative including a chest x-ray was negative and noticed a second chest tube was done because there is a metal foreign body in the left lung field that was part of her clothing and the second chest x-ray revealed there was no ring after the clothing was pulled out away below or the field of view. Troponin was negative BNP was negative CBC was negative CHEM panel was chest x-ray 1 and #2 read by myself reveals no infiltrates no effusion the ring mentioned in the first chest x-ray is not seen on the second after the clothing was removed and placed in a gown. Patient was reassured advised follow-up with Dr. Hamilton getting better and return for any worsening significant way. DVT study of the right arm reveals no DVT. Patient data External records reviewed:: [facility] previous records (I reviewed ED visit on 06/29/2024 for headache ) Clinical information provided by:: patient Social determinants that could affect healthcare access:: none Patient has the following chronic illnesses:: Hypertension How is presenting disease/condition affected by chronic disease/condition?: uneffected by Evaluation data The following diagnostics were reviewed and interpreted by me:: lab results, radiology exam(s) and EKG tracing(s) (EKG 09/22/24 @ 23:41 hours. Sinus rhythm, rate 82, no STEMI. ) Lab and/or radiology exams considered but not ordered:: None Interpretation Summary: Ordering Physician: Albert Moore PA-C Date of Service: 09/23/24 Procedure(s): XR chest 1V Accession Number(s): [id number] cc: Rober Benjamin MD; Albert Moore PA-C; PATRICIA MENSAH ~ Examination: Two-view chest single view TECHNIQUE: Upright PA chest single view Standing time: September 23, 2024 0137 hours Comparison July 06, 2024 INDICATIONS: Onset right-sided chest pain beginning 4 days ago. FINDINGS: Normal heart size. Lungs are clear. Osseous structures are intact IMPRESSION: No active disease Dictated By: Rober Benjamin MD Signed By: <Electronically signed by Rober Benjamin MD in OV> 09/23/24 0747 Ordering Physician: Albert Moore PA-C Date of Service: 09/23/24 Procedure(s): US venous doppler UE RT Accession Number(s): [id number] cc: Rober Benjamin MD; Albert Moore PA-C; PATRICIA MENSAH ~ Examination: Duplex scan of the upper extremity, unilateral right Date and time of exam: September 23, 2024 1409 hours INDICATION: Intermittent right arm swelling and pain beginning 6 days ago Technique: Duplex scan of the extremity veins using B-mode/grayscale imaging and Doppler spectral analysis and color flow Attention is directed to internal echogenicity, compression and augmentation involving these veins, color flow assessment, spectral analysis Findings: Major deep venous structures in the extremity demonstrate normal course and caliber. There is no evidence of deep vein thrombosis. Normal color flow and spectral analysis Impression: Negative for DVT.. Dictated By: Rober Benjamin MD Signed By: <Electronically signed by Rober Benjamin MD in OV> 09/23/24 0731 Ordering Physician: Gareth Cuevas MD Date of Service: 09/23/24 Procedure(s): XR chest 1V Accession Number(s): [id number] cc: Gareth Cuevas MD; Rober Benjamin MD; PATRICIA MENSAH ~ Examination: PA chest single view TECHNIQUE: Upright PA chest single view Exam date 9: September 23, 2024 0842 hours Comparison September 23, 2024 INDICATIONS: Chest pain and shortness of breath today FINDINGS: Normal heart size. Lungs are clear. Osseous structures are intact IMPRESSION: No active disease Dictated By: Rober Benjamin MD Signed By: <Electronically signed by Rober Benjamin MD in OV> 09/23/24 0758 Medications / Prescriptions Medications or Prescriptions considered but not ordered:: None Medication administrations:: None Consultations Consultation(s) initiated? (list below): No Diagnosis Chest Pain Differential Diagnosis: pneumothorax, stable angina, unstable angina pectoris, atypical chest pain, st elevation myocardial infarction, costochondritis, chest pain and other (Musculoskeletal pain ) Most likely diagnosis given after review of the tests above:: Chest pain Admission Indicated Admission indicated?: not indicated Admission Request Was there a request for admission?: No Disposition Plan Disposition Plan: Discharge Discharge Attestation Discharge Attestation: The patient and all family members were given an opportunity to ask questions and understood the discharge instructions. Discharge instructions specifically effects, indications for sooner follow up or return to the emergency department, and the expected course of current diagnosis. Patient condition: Stable Discharge Plan Plan Patient Disposition: HOME (Self Care) Prescriptions/Referrals Prescriptions/Med Rec: No Action atorvastatin 10 mg tablet 10 mg PO QDAY Patient Comments: TAKE 1 TABLET BY MOUTH ONCE DAILY amlodipine 2.5 mg tablet 2.5 mg PO QDAY Patient Comments: TAKE 1 TABLET BY MOUTH ONCE DAILY lisinopril 20 mg Tablet 20 mg PO QDAY ibuprofen 600 mg tablet 600 mg PO Q6H PRN (Reason: pain) Qty: 30 0RF ibuprofen 800 mg tablet 800 mg PO TID PRN (Reason: pain) Qty: 30 0RF Referrals: PATRICIA MENSAH [Primary Care Provider] - In 1 week Problem List Clinical Impression: Chest pain Impression comment: Appears to have pleuritic musculoskeletal chest pain Patient/Caregiver Discharge Instructions Education Materials: ED Chest Pain, Uncertain Cause Additional Instructions: Today you have pleuritic chest pain which means it hurts to breathe which suggest you have pain originating from the chest wall. There is no evidence of pulmonary embolus as your D-dimer was negative. Your chest x-ray and other lab studies were also negative. As we discussed is most likely sore muscles and ibuprofen with some food may give you some relief and stretching exercises with deep breathing will also help the muscles in the chest wall.. If you are getting worse with fever cough sputum production please return for reevaluation. We typically expect this to get better in 7 to 12 days. Print Language: Maltese Stand Alone Forms: Skyla Award Info., Patient Portal Info Letter
--- NOTE | 2024-09-23 07:23 | XR_ITS ---
Examination: PA chest single view TECHNIQUE: Upright PA chest single view Exam date 9: September 23, 2024 0842 hours Comparison September 23, 2024 INDICATIONS: Chest pain and shortness of breath today FINDINGS: Normal heart size. Lungs are clear. Osseous structures are intact IMPRESSION: No active disease
[2024-09-23 08:00] VITALS: BP 135/86; PULSE 81; RESP 14; TEMP 36.8; O2SAT 99
== END 2024-09-23 08:54 | disposition home or self-care (01) ==
PROVIDERS: Emergency Medicine; Physician Assistant; Emergency Provider Emergency Medicine; PCP Nurse Practitioner Family
DX: R07.81 Pleurodynia (principal); I10 Essential (primary) hypertension; M79.601 Pain in right arm
CPT/HCPCS: 36415; 71045; 80053; 81025; 83880; 84484; 85025; 85379; 93005; 93971; 99284

== ENCOUNTER 2024-10-11 17:36 | Emergency (ER) | payer OTHER, SELFPAY ==
[2024-10-11 17:37] VITALS: BMI 40.6
[2024-10-11 18:05] VITALS: BP 143/89; PULSE 76; RESP 19; TEMP 37.1; O2SAT 95
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
--- NOTE | 2024-10-11 19:15 | EDNOTE_ITS ---
Upper Extremity Injury RME/HPI General Chief Complaint: Extremity Injury, Upper Stated Complaint: WORK INJURY, KICKED RIGHT SHOULDER Time Seen by Provider: 10/11/24 19:11 Arrival date/time: 10/11/24 17:36 RME / HPI RME / HPI narrative: Kicked in right shoulder at work today ----- Dr. Cartagena?[facility] Main ED Evaluation: 44yo female presents to the ED for a chief complaint of right shoulder pain. 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 Patient states she took Tylenol and placed an ice pack, but was advised to come in for evaluation. Patient denies any other injuries. Related Data Home Medications ?Medication ?Instructions ?Recorded ?Confirmed lisinopril 20 mg tablet 20 mg PO QDAY 08/02/2307/10 amlodipine 2.5 mg tablet 2.5 mg PO QDAY 07/10/2406/27 atorvastatin 10 mg tablet 10 mg PO QDAY 07/10/2407/10 Previous Rx's ?Medication ?Instructions ?Recorded ibuprofen 600 mg tablet 600 mg PO Q6H PRN pain #30 t abs 08/03/23 ibuprofen 800 mg tablet 800 mg PO TID PRN pain #30 t abs 11/22/23 Allergies Allergy/AdvReac Type Severity Reaction Status Date / Time No Known Allergies Allergy Verified 10/11/24 17:39 Review of Systems Review of Systems Systems Reviewed: All systems reviewed, normal except as documented Past Medical History Past Medical History NEUROLOGIC: Negative Neurological Disorders or Seizures CARDIAC: Positive Heart Murmur, Hypercholesterolemia and Hypertension; Negative Cardiac Disorders or Congestive Heart Failure RESPIRATORY: Negative Chronic Obstructive Pulmonary Disease (COPD) or Asthma GASTROINTESTINAL: Positive Gastrointestinal Disorders, Gall Bladder Disease, Ulcer, Hiatal Hernia and Obesity; Negative Hepatitis GENITOURINARY: Negative Genitourinary Disorders or Renal Disease REPRODUCTIVE: Positive Previous Pregnancies MUSCULOSKELETAL: Negative Musculoskeletal Disorders ENDOCRINE: Negative Endocrine Disorders, Diabetes Mellitus Type 1 or Diabetes Mellitus Type 2 HEMATOLOGIC: Positive Blood Disorders and Anemia; Negative Sickle Cell Disease OTHER HISTORY: Positive Chicken Pox; Negative Autoimmune Disease, Shingles, Blood Transfusions, Blood Transfusion Reaction, Anesthesia Reactions or Cancer Family History FAMILY HISTORY: Negative Family Psychiatric Problems, Family Respiratory Disorders, Family Cardiac Disorders, Family Gastrointestinal Problems, Family Cancer, Family Surgery or Family Anesthesia Reaction Surgical History SURGICAL: Positive Tubal Ligation and Section Social History SMOKING STATUS: Never smoker SUBSTANCE USE: does not use ED Exam Narrative Physical exam: GENERAL APPEARANCE: alert and oriented x 4, well-developed, well-nourished, no acute distress VITALS: All vitals were reviewed and the pulse ox is 95% on room air, which is normal according to my interpretation. HEENT: Normocephalic, atraumatic; pupils equal, round, reactive to light; EOMI; mucous membranes pink, moist; oropharynx clear NECK: Supple LUNGS: CTABL; no wheezes, no rales, no rhonchi HEART: Regular rate, regular rhythm; normal S1, S2; no murmurs ABDOMEN: non distended; normal BS; soft, no tenderness, no guarding, no rebound; no masses, no organomegaly, no hernia BACK: no CVA tenderness EXTREMITIES: atraumatic; no edema NEUROLOGIC: awake; alert and oriented x4; cranial nerves II-XII grossly intact; no focal sensory or motor deficits PSYCHIATRIC: appropriate mood and affect SKIN: warm, dry, normal color; no rashes Course Quality Measures none Orders Category Date Time Status XR shoulder RT min 2V Stat Exams 10/11/24 18:20 Completed Vital Signs Vital signs: Vital Signs Temperature 98.7 F 10/11/24 18:05 Pulse Rate 76 10/11/24 18:05 Respiratory Rate 19 10/11/24 18:05 Blood Pressure 143/89 H 10/11/24 18:05 Pulse Oximetry (%) 95 10/11/24 18:05 Oxygen Delivery Method Room Air 10/11/24 18:05 Extremity Injury MDM Narrative MDM Narrative:: Scribe Attestation: 10/11/24 Rama Morin am scribing for and in the presence of Dr. Cartagena. Patient data External records reviewed:: [facility] previous records (Per chart review, patient has no relevant previous ED visits.) Clinical information provided by:: patient Social determinants that could affect healthcare access:: none Patient has the following chronic illnesses:: HTN, HLD How is presenting disease/condition affected by chronic disease/condition?: uneffected by Evaluation data The following diagnostics were reviewed and interpreted by me:: radiology exam(s) Lab and/or radiology exams considered but not ordered:: none Interpretation Summary: [place] Report Signed Patient: BELLE HA. Record#: [id number] Birthdate: 1980 Age/Sex: 44 / F Location: [facility] Attending Dr: Ordering Physician: Albert Moore PA-C Date of Service: 10/11/24 Procedure(s): XR shoulder RT min 2V Accession Number(s): [id number] cc: Rober Benjamin MD; Albert Moore PA-C~ Examination: Right shoulder 2 views TECHNIQUE: AP internal rotation Y-view right shoulder 2 views Date and time: October 11, 2024 1827 hours INDICATIONS: Kicked in the shoulder at work today with shoulder pain FINDINGS: No shoulder fracture or dislocation No opaque foreign body IMPRESSION: No shoulder fracture or dislocation Dictated By: Rober Benjamin MD Signed By: <Electronically signed by Rober Benjamin MD in OV> 10/11/24 1851 Medications / Prescriptions Medications or Prescriptions considered but not ordered:: none Medication administrations:: none Consultations Consultation(s) initiated? (list below): No Diagnosis Upper Extremity Injury Differential Diagnosis: other (shoulder fracture, shoulder dislocation, contusion) Most likely diagnosis given after review of the tests above:: see clinical impression below Admission Indicated Admission indicated?: not indicated Admission Request Was there a request for admission?: No Disposition Plan Disposition Plan: Discharge Discharge Attestation Discharge Attestation: The patient and all family members were given an opportunity to ask questions and understood the discharge instructions. Discharge instructions specifically effects, indications for sooner follow up or return to the emergency department, and the expected course of current diagnosis. Patient condition: Stable Discharge Plan Plan Patient Disposition: HOME (Self Care) Discharge Disposition comment: Stable for discharge home Patient condition on transfer: Stable Prescriptions/Referrals Prescriptions/Med Rec: No Action atorvastatin 10 mg tablet 10 mg PO QDAY Patient Comments: TAKE 1 TABLET BY MOUTH ONCE DAILY amlodipine 2.5 mg tablet 2.5 mg PO QDAY Patient Comments: TAKE 1 TABLET BY MOUTH ONCE DAILY lisinopril 20 mg Tablet 20 mg PO QDAY ibuprofen 600 mg tablet 600 mg PO Q6H PRN (Reason: pain) Qty: 30 0RF ibuprofen 800 mg tablet 800 mg PO TID PRN (Reason: pain) Qty: 30 0RF Referrals: [facility] [Provider Group] - In 1 week Problem List Clinical Impression: Anterior shoulder pain Patient/Caregiver Discharge Instructions Discharge Activity: activity as tolerated Education Materials: ED RICE Additional Instructions: Please return to the emergency department if you have any worsening or any further medical problems and we will help you. Otherwise you should follow-up with the Workmen's Comp. doctor, your primary care doctor and/or the family health care clinic. Print Language: [place] Stand Alone Forms: Skyla Award Info., Patient Portal Info Letter
== END 2024-10-11 19:23 | disposition home or self-care (01) ==
PROVIDERS: Emergency Provider Emergency Medicine; PCP Family Medicine
DX: M25.511 Pain in right shoulder (principal)
CPT/HCPCS: 73030; 99283